=== PATIENT | female | born 1990 | race Caucasian/White ===

== ENCOUNTER 2018-07-13 11:46 | Day surgery (SDC) | payer MEDICAID ==
[2018-07-13] VITALS (9 sets, daily range): BP systolic 133–157; BP diastolic 71–90
[~2018-07-13] VITALS: Ht 165.1 cm; Wt 100.0 kg
[2018-07-13] MEDS ORDERED: fentaNYL/PF 50MCG/1 ML 2ML syringe ONE ×2 (13:02→15:56)
[2018-07-13] MEDS ORDERED: meperidine/PF 100mg/ml syringe ONE (13:02)
[2018-07-13] MEDS ORDERED: diphenhydrAMINE 50 mg/ml inj ONE (13:03)
[2018-07-13] MEDS ORDERED: iohexol 300 MG/1 ML 50ml polymer ONE (13:03)
[2018-07-13] MEDS ORDERED: LIDOcaine Viscous 15ml cup ONE (13:03)
[2018-07-13] MEDS ORDERED: MIDAZolam 5mg/5ml vial ONE (13:03)
[2018-07-13] MEDS ORDERED: glucagon, human recombinant 1mg kit ONE (13:03)
[2018-07-13] MEDS ORDERED: levoFLOXACIN-Levaquin 500mg/D5 0 ML IV ONE (13:04)
[2018-07-13] MEDS ORDERED: HYDR-565 PO (13:23)
[2018-07-13] MEDS ORDERED: BIRTH CONTROL PO (13:24)
[2018-07-13] MEDS ORDERED: BUPR75TA8 PO (13:24)
== END 2018-07-13 17:25 | disposition home or self-care (01) ==
LOC: GI LAB 11:46
PROVIDERS: ATTEND Internal Medicine Gastroenterology
DX: K83.1 Obstruction of bile duct (principal); Z90.49 Acquired absence of other specified parts of digestive tract; Z88.0 Allergy status to penicillin; Z79.891 Long term (current) use of opiate analgesic; Z79.899 Other long term (current) drug therapy; Z98.890 Other specified postprocedural states
CPT/HCPCS: 43262; 99152; J1200; J2250; J3010; J7030; Q9967; A4620; G0500; J1610; J1956; J2175